=== PATIENT | female | born 1980 | race Caucasian/White ===

== ENCOUNTER 2016-07-19 19:50 | Emergency (ER) ==
[2016-07-19 20:04] VITALS: BP 115/89
[2016-07-19] MEDS ORDERED: ZOFRAN IV ONE (20:34)
[2016-07-19] MEDS ORDERED: DILAUDID IV ONE ×2 (20:34→21:30)
--- NOTE | 2016-07-19 20:38 | PROVIDER DOCUMENTATION ---
HPI-Abdominal Pain/GI Problem - General Chief Complaint: Epigastric Pain Stated Complaint: ABD PAIN Time Seen by Provider: 07/19/16 20:26 Source: patient Allergies/Adverse Reactions: Patient Allergies Allergy/AdvReac Type Severity Reaction Status Date / Time Sulfa (Sulfonamide Allergy HIVES Verified 10/01/14 19:44 Antibiotics) Home Medications: Home Medication List Medication Instructions Recorded Confirmed Last Taken Type Aripiprazole [Abilify] 5 mg PO DAILY 10/01/14 10/01/14 Unknown History Citalopram [Celexa] 20 mg PO TID 10/01/14 10/01/14 Unknown History Lansoprazole [Prevacid] 30 mg PO DAILY #30 capsule. 07/19/16 Unknown Rx - History of Present Illness-ABD Nature of Presenting Problems: 36 YOWF PRESENTS TO ED WITH C/O PT STATES SHE HAD A SUDDEN ONSET OF EPIGASTRIC PAIN THAT STARTED 7 HOURS PLATINUMSMITH. PT STATES SHE TOOK SOME ADVIL AND TUMS AT HOME, WITH VERY LITTLE RELIEF. PT STATES SHE WAS RECENTLY DX WITH MONO. Abdominal Pain Onset Location: reports: epigastric Pain Radiation: reports: no radiation Quality of Pain: reports: aching Severity in ED: reports: moderate Onset/Duration: reports: 4-6 hours ago Timing: reports: still present Activities at Onset: reports: light activity Exposure to sick contacts?: No Modifying Factors: improves with: nothing Last BM: unsure Dark Stools Present?: reports: none noticed Rectal Bleeding: reports: none Rectal Pain: reports: none Emesis Description: reports: none Bruising or Bleeding Gums?: No Similar Symptoms Previously?: No Recently seen or treated by another doctor?: No Review of Systems - Adult - REVIEW OF SYSTEMS - ADULT Constitutional: denies: chills, fever Eyes: reports: no symptoms reported Ears, Nose, Mouth & Throat: reports: no symptoms reported Cardiovascular: denies: chest pain, palpitations, syncope Respiratory: denies: cough, shortness of breath, wheezing Gastrointestinal: reports: abdominal pain, nausea. denies: diarrhea, vomiting Genitourinary: reports: no symptoms reported Musculoskeletal: denies: back pain, neck pain Integumentary: reports: no symptoms reported Neurological: denies: dizziness/vertigo, headache/migraines, syncope Psychiatric: reports: no symptoms reported Endocrine: reports: no symptoms reported Hematologic/Lymphatic: reports: no symptoms reported Allergic/Immunologic: reports: no symptoms reported All Other Systems: Reviewed and Negative Past History - Adult - PAST MEDICAL HISTORY-ADULT Review of Records: reports: Nursing Assessment Review, Medications Reviewed Psychiatric: reports: anxiety - PRIOR SURGERIES/PROCEDURES Surgical/Procedure History: reports: - IMMUNIZATION STATUS Childhood Immunizations: See Nurse Assessment Flu Vaccine: See Nurse Assessment - SOCIAL HISTORY Smoking: cigarettes, greater than 1 pack/day Provider spent 3-5 mins advising pt. on dangers of tobacco.: Discussed manners to quit use, and f/u contacts for add'l counseling. Substance Use: alcohol Alcohol Use Frequency: occasionally Number of drinks per typical drinking period:: 3-4 drinks Living Situation: family Physical Exam-General - CONSTITUTIONAL General Appearance: alert, moderate distress - EYES Eyes: PERRL/EOMI, pink conjunctivae - HEAD, EARS, NOSE, MOUTH & THROAT HENMT: normocephalic/atraumatic, moist mucous membranes - NECK Neck: non-tender, full range of motion, supple - RESPIRATORY Respiratory: chest non-tender, lungs clear, normal breath sounds - CARDIOVASCULAR Cardiovascular: normal peripheral pulses, tachycardia - GASTROINTESTINAL (ABDOMEN) Abdominal Exam: normal bowel sounds, soft, tenderness (EPIGASTRIC) - LYMPHATIC Lymphatic: no adenopathy - MUSCULOSKELETAL Back Exam: normal inspection, no CVA tenderness, no vertebral tenderness Extremity: normal range of motion, non-tender - SKIN Integumentary: normal color, normal turgor, warm/dry - NEUROLOGIC Neurologic: grossly normal - PSYCHIATRIC Psych/Mental Status: oriented x 3 Progress - CT/MRI 1 CT Study: Abdomen, Pelvis CT Results: NORMAL GALLBLADDER. NORMAL PANCREAS. NO BOWEL OBSTRUCTION. NO ABSCESS. Departure - Departure Time of Disposition Order: 23:05 DIAGNOSIS: Epigastric abdominal pain Disposition: HOME 01 Certified Medical Emergency: Emergent Condition: Stable Additional Instructions: bland diet, avoid aspirin and antiinflammatories, followup with GI doctor next week if symptoms persist Prescriptions: Lansoprazole [Prevacid] 30 mg PO DAILY #30 capsule. Referrals: Marck Oneil MD [STAFF PHYSICIAN] - Zofia Mclean MD [Primary Care Provider] - Attestation - Scribe Verification/Attestation Scribe:: Napoleon Ramirez Acting as Scribe for:: Gianfranco Dodson Scribe documention review:: This chart was documented by a scribe and accurately reflects the service the provider performed and the decisions made by the provider.
[2016-07-19 20:46] LABS: MANUAL DIFF NEEDED? NO
[2016-07-19 20:59] LABS: BASO% 0.4 % (0.0-0.8); EOS# 0.07 X1000 (0.0-0.7); EOS% 0.9 % (0.0-10.0); HEMATOCRIT 35.2 % (37.0-47.0); HEMOGLOBIN 12.4 g/dL (12.0-16.0); IMM GRAN# 0.02 X1000 (0.0-0.04); IMM GRAN% 0.3 % (0.0-0.5); LYMPH# 1.87 X1000 (1.2-3.4); LYMPH% 24.6 % (20.5-51.1); MCH 31.9 PG (27-31); MCHC 35.2 g/dL (33-37); MCV 90.5 FL (81-99); MONO# 0.29 X1000 (0.11-0.59); MONO% 3.8 % (1.7-9.3); MPV 11.6 FL (7.4-10.4); PLT 179 X1000 (130-400); RBC 3.89 XMIL (4.2-5.4)
[2016-07-19 21:04] LABS: AGAP 15; ALKALINE PHOSPHATASE 43 U/L (32-104); BUN 12 mg/dL (8-22); CHLORIDE 102 mmol/L (98-107); COSMO 271; GOT 13 U/L (10-30); GPT 7 U/L (10-36); LIPASE 40 U/L (13-60); POTASSIUM 3.8 mmol/L (3.5-5.1); SODIUM 136 mmol/L (136-145); TCO2 19 mmol/L (25-35); TOTAL PROTEIN 6.4 g/dL (6.3-8.3)
[2016-07-19 21:20] LABS: URINE CULTURE PL NEEDED? NO; URINE SOURCE CLEAN CATCH
[2016-07-19] MEDS ORDERED: PROTONIX IV ONE (21:30)
[2016-07-19] MEDS ORDERED: SODIUM CHLORIDE 0.9% INJ ONE (21:30)
[2016-07-19 21:40] LABS: BILIRUBIN URINE NEGATIVE (NEGATIVE); BLOOD URINE NEGATIVE (NEGATIVE); CLARITY CLEAR (CLEAR); COLOR YELLOW; GLUCOSE URINE NEGATIVE (NEGATIVE); LEUKOCYTES URINE NEGATIVE (NEGATIVE); NITRITE URINE NEGATIVE (NEGATIVE); PROTEIN URINE NEGATIVE (NEGATIVE); SP GRAVITY URINE 1.005; UROBILINOGEN URINE NORMAL
[2016-07-19 21:43] LABS: URINE CAST NONE SEEN /LPF; URINE CRYSTAL NONE SEEN /HPF; URINE EPITHELIAL CELLS <10 /HPF (<10)
--- NOTE | 2016-07-20 08:41 | Diag Imaging Result Document ---
PROCEDURE NAME: CT ABD/PELVIS W/ IV CONT ONLY - 07/19/2016 CT OF THE ABDOMEN WITH INTRAVENOUS CONTRAST: FINDINGS: There is a small focus of ground-glass opacity in the right costophrenic sulcus which may represent a minimal degree of pneumonia. The spleen and adrenal glands are not enlarged, and the liver is unremarkable in appearance. There are no gallstones. The kidneys are without evidence of hydronephrosis or mass and both excrete normally. There is no evidence of significant adenopathy. The pancreas is normal in appearance. There is some fluid in the stomach and small bowel without evidence of dilatation. There is also stool and gas in the colon. CT OF THE PELVIS WITH INTRAVENOUS CONTRAST: There is some fluid in the appendix which measures just less than 7 mm in greatest dimension. No definite periappendiceal inflammation is present. There appears to be a diaphragm in the vaginal vault. There is no evidence of significant free fluid or masses. There is asymmetric partial sacralization of a transitional vertebra on the right. There is no evidence of acute bony disease. IMPRESSION: Nonspecific findings which may indicative of mild gastroenteritis. Questionable minimal right lower lobe pneumonia.
--- NOTE | 2016-07-20 09:38 | Diag Imaging Result Document ---
PROCEDURE NAME: FLAT/UPRIGHT ABD/1 VIEW CHEST - 07/19/2016 FLAT AND UPRIGHT ABDOMEN: FINDINGS: There is some stool in the ascending colon. There is no evidence of small bowel dilatation, and a small amount of retained fluid and food particles are present in the stomach. There is no evidence of organomegaly or mass. No abnormal calcifications are demonstrated. IMPRESSION: Nonspecific abdomen. PA CHEST: FINDINGS: There is no evidence of acute cardiac or pulmonary disease. There are no previous studies. IMPRESSION: No acute disease.
== END 2016-07-19 23:17 | disposition home or self-care (01) ==
LOC: P.ED 19:50
DX: R10.13 Epigastric pain (principal); R11.0 Nausea; F41.9 Anxiety disorder, unspecified; R00.0 Tachycardia, unspecified; R10.816 Epigastric abdominal tenderness; F17.210 Nicotine dependence, cigarettes, uncomplicated; Z79.899 Other long term (current) drug therapy; Z71.6 Tobacco abuse counseling
CPT/HCPCS: 74022; 74177; 80053; 81001; 83690; 84703; 85025; 96374; 96375; 96376; C9113; J1170; J2405; Q9967; S0164